=== PATIENT | male | born 1950 | race Caucasian/White ===

== ENCOUNTER 2021-03-17 09:09 | Inpatient (IN) | payer OTHER ==
[~2021-03-17] VITALS: Ht 167.6 cm; Wt 100.0 kg
[2021-03-17 10:18] LABS: BASOPHILS # (AUTO) 0.1 X10'3 (0-0.2); BASOPHILS % (AUTO) 0.7 % (0-1); EOSINOPHILS # (AUTO) 0.5 X10'3 (0-0.9); EOSINOPHILS % (AUTO) 4.6 % (0-6); HEMATOCRIT 37.8 % (42.0-52.0); HEMOGLOBIN 12.5 g/dl (14.0-17.9); LYMPHOCYTES # (AUTO) 2.4 X10'3 (1.1-4.8); LYMPHOCYTES % (AUTO) 21.5 % (21-51); MEAN CORPUSCULAR HGB CONC 33.1 g/dL (33.0-36.5); MEAN CORPUSCULAR VOLUME 90.7 FL (78-98); MEAN PLATELET VOLUME 7.7 FL (7.4-10.4); MONOCYTES # (AUTO) 0.9 X10'3 (0-0.9); MONOCYTES % (AUTO) 8.4 % (2-12); NEUTROPHILS # (AUTO) 7.2 X10'3 (1.8-7.7); NEUTROPHILS % (AUTO) 64.8 % (42-75); PLATELET COUNT 397 X10'3 (140-440); RED BLOOD COUNT 4.17 X10'6 (4.70-6.10); RED CELL DISTRIBUTION WIDTH 13.7 % (11.5-14.5); WHITE BLOOD COUNT 11.1 X10'3 (4.5-11.0)
--- NOTE | 2021-03-17 10:21 | NUR ---
TURNAROUND PLANNER IN ROOM FOR PROCEDURE.
[2021-03-17 10:30] LABS: ALANINE AMINOTRANSFERASE 36 U/L (12-78); ALBUMIN 3.4 G/DL (3.4-5.0); ALBUMIN/GLOBULIN RATIO 0.7 (1.1-1.5); ALKALINE PHOSPHATASE 88 IU/L (46-116); ANION GAP 12 (8-16); ASPARTATE AMINO TRANSFERASE 22 U/L (10-37); BILIRUBIN,TOTAL 0.3 MG/DL (0.1-1.0); BLOOD UREA NITROGEN 21 MG/DL (7-18); BUN/CREATININE RATIO 11.9 (5.4-32.0); CHLORIDE 101 MMOL/L (99-107); CREATININE 1.77 MG/DL (0.60-1.10); GLUCOSE 153 MG/DL (70-104); POTASSIUM 5.3 MMOL/L (3.5-5.1); SODIUM 137 MMOL/L (135-145); TOTAL CARBON DIOXIDE 23.6 MMOL/L (24-32); TOTAL PROTEIN 8.2 G/DL (6.4-8.2); eGFR 38 ML/MIN
[2021-03-17 11:40] LABS: C-REACTIVE PROTEIN 2.28 MG/DL (0.0-0.5)
[2021-03-17] MEDS ORDERED: CefTRIAXone/D5W-Rocephin 1gm 50 ML IV ONE (11:45)
[2021-03-17] MEDS ORDERED: acetaminophen 325mg tablet PO PRN ×2 (12:00)
[2021-03-17] MEDS ORDERED: magnesium 2GM in 50ml NS 50 ML IV PRN (12:00)
[2021-03-17] MEDS ORDERED: magnesium 4gm in 100ml NS 100 ML IV PRN (12:00)
[2021-03-17] MEDS ORDERED: dextrose ORAL solution 15 GM/59 ML bottle PO PRN (12:00)
[2021-03-17] MEDS ORDERED: magnesium hydroxide 30ml (MOM) UD suspension PO PRN (12:00)
[2021-03-17] MEDS ORDERED: HYDROcodone/acetaminophen 5mg/325mg tablet PO PRN (12:00)
[2021-03-17] MEDS ORDERED: HYDROcodone/acetaminophen 10/325mg tab PO PRN (12:00)
[2021-03-17] MEDS ORDERED: ondansetron/PF 4mg/2ml inj IV PRN (12:00)
[2021-03-17] MEDS ORDERED: mag hydrox/Alum hydrox/simeth 30ml oral suspension PO PRN (12:00)
[2021-03-17] MEDS: sodium bicarbonate (8.4%) inj. 100 MEQ in sodium chloride 0.45% 1,000 ML IV SCH (12:00)
[2021-03-17] MEDS ORDERED: glucagon, human recombinant 1mg kit SUBCUT PRN (12:00)
[2021-03-17] MEDS ORDERED: magnesium Cl slow-release 64mg tablet PO PRN (12:00)
[2021-03-17] MEDS ORDERED: MESSAGE TO PHARMACY PO ONE (12:00)
[2021-03-17] MEDS ORDERED: potassium Cl 20 mEq SR tablet PO PRN ×2 (12:00)
[2021-03-17] MEDS ORDERED: dextrose 50%-water 50ml dispensing syringe IV PRN ×2 (12:00)
[2021-03-17] MEDS ORDERED: potassium Cl 40MEQ/1/2NS 520ml 520 ML IV PRN ×2 (12:00)
--- NOTE | 2021-03-17 12:40 | NUR ---
PT'S REPORTS THAT THE NURSING STAFF WILL NEED TO CALL HER FOR ANYTHING BECAUSE THE PT HAS DEMENTIA AND WILL NOT BE ABLE TO GIVE INFORMATION. PT'S IS LEAVING NOW.
[2021-03-17 12:50] LABS: CLARITY,URINE CLEAR (Clear); COLOR,URINE YELLOW (Yellow); GLUCOSE, URINE NEGATIVE (Neg); KETONES,URINE NEGATIVE (Neg); LEUKOCYTE ESTERASE ,URINE NEGATIVE (Neg); NITRITES, URINE NEGATIVE (Neg); OCCULT BLOOD,URINE NEGATIVE (Neg); PROTEIN,URINE NEGATIVE (Neg); UROBILINOGEN,URINE 0.2 E.U/dL (0.2-1.0)
[2021-03-17 12:56] LABS: UA COLLECTION TYPE VOIDED
[2021-03-17] MEDS: vancomycin/NS 1 GM ADD-VANTAGE 250 ML IV SCH ×2 (13:00→14:13)
[2021-03-17 13:02] LABS: HEMOGLOBIN A1C 8.7 % (4.5-6.2)
[2021-03-17] MEDS ORDERED: AMLO10TA13 PO (13:35)
[2021-03-17] MEDS ORDERED: LANTUS SQ (13:35)
[2021-03-17] MEDS ORDERED: OLAN7.5T9 PO (13:35)
[2021-03-17] MEDS ORDERED: VALS160T30 PO (13:35)
[2021-03-17] MEDS ORDERED: CLOP75TA34 PO (13:35)
[2021-03-17] MEDS ORDERED: DOCU-267 PO (13:35)
[2021-03-17] MEDS ORDERED: ASPI-612 PO (13:35)
[2021-03-17] MEDS ORDERED: INSU100I8 SQ (14:11)
[2021-03-17] MEDS ORDERED: MULT-384 PO (14:11)
[2021-03-17] MEDS ORDERED: METF-950 PO (14:11)
[2021-03-17] MEDS ORDERED: heparin 10,000 units/1 ML INJ IV ONE (17:05)
[2021-03-17] MEDS ORDERED: heparin 10,000 units/1 ML INJ IV PRN (17:05)
[2021-03-17 18:00] VITALS: BP 149/66
[2021-03-17] MEDS: insulin Lispro (HumaLOG) vial - multi-dose SQ SCH (19:23)
[2021-03-17] MEDS: pantoprazole 40mg Tablet.DR PO SCH (19:26)
[2021-03-17] MEDS: K and/or MAG REPLACEMENT MC SCH (19:38)
[2021-03-17 20:44] LABS: PARTIAL THROMBOPLASTIN TIME 25 SECONDS (22-32)
[2021-03-17] MEDS ORDERED: temazepam 15mg capsule PO PRN (21:00)
[2021-03-17] MEDS: insulin glargine (Lantus) pen - multi-dose SQ SCH (21:30)
[2021-03-17 22:00] VITALS: BP 161/86
[2021-03-17] MEDS: heparin 25,000 UNIT/250ml bag 250 ML IV SCH (22:16)
[2021-03-18] MEDS: sodium bicarbonate (8.4%) inj. 100 MEQ in sodium chloride 0.45% 1,000 ML IV SCH ×2 (00:03→13:00)
[2021-03-18 06:00] VITALS: BP 155/91
[2021-03-18 06:07] LABS: BASOPHILS # (AUTO) 0.1 X10'3 (0-0.2); BASOPHILS % (AUTO) 0.6 % (0-1); EOSINOPHILS # (AUTO) 0.4 X10'3 (0-0.9); EOSINOPHILS % (AUTO) 3.8 % (0-6); HEMOGLOBIN 11.8 g/dl (14.0-17.9); LYMPHOCYTES % (AUTO) 27.2 % (21-51); MEAN CORPUSCULAR HEMOGLOBIN 30.1 PG (27.0-31.0); MEAN CORPUSCULAR HGB CONC 32.8 g/dL (33.0-36.5); MEAN CORPUSCULAR VOLUME 91.7 FL (78-98); MEAN PLATELET VOLUME 7.8 FL (7.4-10.4); MONOCYTES # (AUTO) 0.9 X10'3 (0-0.9); MONOCYTES % (AUTO) 8.3 % (2-12); NEUTROPHILS # (AUTO) 6.6 X10'3 (1.8-7.7); NEUTROPHILS % (AUTO) 60.1 % (42-75); PLATELET COUNT 404 X10'3 (140-440); RED BLOOD COUNT 3.92 X10'6 (4.70-6.10); RED CELL DISTRIBUTION WIDTH 13.7 % (11.5-14.5)
[2021-03-18 06:08] LABS: PARTIAL THROMBOPLASTIN TIME 28 SECONDS (22-32)
[2021-03-18 06:14] LABS: ALANINE AMINOTRANSFERASE 26 U/L (12-78); ALBUMIN/GLOBULIN RATIO 0.7 (1.1-1.5); ALKALINE PHOSPHATASE 73 IU/L (46-116); ANION GAP 11 (8-16); ASPARTATE AMINO TRANSFERASE 17 U/L (10-37); BILIRUBIN,TOTAL 0.4 MG/DL (0.1-1.0); BLOOD UREA NITROGEN 17 MG/DL (7-18); BUN/CREATININE RATIO 10.1 (5.4-32.0); CALCIUM 8.5 MG/DL (8.5-10.1); CHLORIDE 105 MMOL/L (99-107); CHOL/HDL RATIO 5.5 (0.00-4.99); CHOLESTEROL 199 MG/DL (0-200); CREATININE 1.68 MG/DL (0.60-1.10); GLUCOSE 137 MG/DL (70-104); HDL CHOLESTEROL 36 MG/DL (35-60); LDL CHOLESTEROL 136 MG/DL (50-100); MAGNESIUM 1.9 MG/DL (1.5-2.4); POTASSIUM 4.1 MMOL/L (3.5-5.1); SODIUM 139 MMOL/L (135-145); TOTAL CARBON DIOXIDE 22.7 MMOL/L (24-32); TOTAL PROTEIN 7.6 G/DL (6.4-8.2); TRIGLYCERIDES 180 MG/DL (20-135); eGFR 40 ML/MIN
[2021-03-18] MEDS: pantoprazole 40mg Tablet.DR PO SCH (07:29)
--- NOTE | 2021-03-18 07:34 | NUR ---
PAGER ID: [phone] MESSAGE: Janey Adamson 1809: patients heparin gtt was not started correctly last night. PTT went from 25 to 28 this AM. would you like me to follow the protocol or restart from initial rate it should have been at? thanks, екатерина [phone]
[2021-03-18] MEDS: heparin 25,000 UNIT/250ml bag 250 ML IV SCH (07:59)
[2021-03-18] MEDS: K and/or MAG REPLACEMENT MC SCH ×2 (08:00→19:05)
[2021-03-18] MEDS ORDERED: enoxaparin 40mg/0.4ml syringe SUBCUT SCH (08:00)
--- NOTE | 2021-03-18 08:04 | NUR ---
Spoke with MD regarding heparin gtt. He said to give the bolus per protocol and adjust the infusion rate to the 1200 units/hr initial rate. All corrections have been made and co-signed.
--- NOTE | 2021-03-18 08:20 | NUR ---
Acting as resource RN assumed care so Haleigh ROTH could go on a break.
[2021-03-18] MEDS: insulin Lispro (HumaLOG) vial - multi-dose SQ SCH ×3 (08:36→18:59)
[2021-03-18] MEDS: CefTRIAXone/D5W-Rocephin 1gm 50 ML IV SCH (08:38)
--- NOTE | 2021-03-18 09:00 | NUR ---
PAGER ID: [phone] MESSAGE: Janey Adamson [phone]: patient cannot go to MRI with heparin gtt. are you okay with it being paused while he goes? thanks, екатерина [phone]
--- NOTE | 2021-03-18 09:18 | NUR ---
DM Consult "pt confused": A1C 8.7 and hx dementia per EMR. Pt not appropriate for DM ed at this time. Addendum: 03/18/21 at [address] Amended: Links added.
--- NOTE | 2021-03-18 09:26 | NUR ---
confirmed with MD patient is ok to take plavix and aspirin while on Heparin drip.
[2021-03-18] MEDS: OLANZapine 2.5MG tablet PO SCH (09:44)
[2021-03-18] MEDS: atorvastatin 20mg tablet PO SCH (09:45)
[2021-03-18] MEDS: aspirin 81mg tablet.DR PO SCH (09:45)
[2021-03-18] MEDS: clopidogrel 75mg tablet PO SCH (09:50)
[2021-03-18] MEDS: amLODIPine 5mg tablet PO SCH (09:50)
[2021-03-18] MEDS: losartan 50mg tablet PO SCH (09:51)
[2021-03-18 10:04] VITALS: BP 139/76
--- NOTE | 2021-03-18 10:07 | NUR ---
Acting as resource RN i assumed patient care to send Sasha RN on a break.
[2021-03-18 10:30] VITALS: BP 139/76
[2021-03-18] MEDS: acetylcysteine 200 MG/ml 4ml vial PO SCH ×2 (10:37→19:01)
--- NOTE | 2021-03-18 12:05 | NUR ---
Acting as resource RN assuming patient care to send Sasha RN on a break.
[2021-03-18] MEDS: vancomycin/NS 1 GM ADD-VANTAGE 250 ML IV SCH (12:59)
--- NOTE | 2021-03-18 14:35 | NUR ---
PAGER ID: [phone] MESSAGE: Janey Dick [phone]: patient intermittently agitated and pulling at lines. would you like a PRN ordered for him? thanks, екатерина [phone]
--- NOTE | 2021-03-18 14:53 | NUR ---
PAGER ID: [phone] MESSAGE: Janey Dick [phone]: cable splicing technician called asking if you still wanted the MRI completed? thanks, екатерина [phone]
[2021-03-18] MEDS: LORazepam 2 mg/ml vial IV PRN (15:55)
--- NOTE | 2021-03-18 16:46 | NUR ---
Acting as resource RN i have assumed patient care and sent Sasha ROTH on a break
[2021-03-18 18:00] VITALS: BP 151/80
--- NOTE | 2021-03-18 18:02 | NUR ---
Patient in room ORTHO 4010. I have received report from GONZALEZ Salguero and had the opportunity to ask questions and assume patient care. Addendum: 03/18/21 at 1810 by Cathleen Oakley STUDENT SEEMA Note time wrong, meant to be at 0600
--- NOTE | 2021-03-18 18:04 | NUR ---
Student documentation: I have reviewed and agree with all interventions, assessments performed and documented by SN Cathleen. Student Medication Administration: For this medication-pass time frame, all medication were reviewed, dispensed, administered and documented per hospital policy by SN Cathleen.
--- NOTE | 2021-03-18 18:22 | NUR ---
Problems reprioritized. Patient report given, questions answered & plan of care reviewed with GONZALEZ Salguero.
[2021-03-18] MEDS: insulin glargine (Lantus) pen - multi-dose SQ SCH (21:43)
[2021-03-18 22:00] VITALS: BP 146/70
[2021-03-19] VITALS (11 sets, daily range): BP systolic 117–157; BP diastolic 70–96
[2021-03-19] MEDS: sodium bicarbonate (8.4%) inj. 100 MEQ in sodium chloride 0.45% 1,000 ML IV SCH (00:36)
[2021-03-19] MEDS: heparin 25,000 UNIT/250ml bag 250 ML IV SCH ×2 (02:29→17:38)
[2021-03-19 03:48] LABS: BASOPHILS # (AUTO) 0.1 X10'3 (0-0.2); BASOPHILS % (AUTO) 0.9 % (0-1); EOSINOPHILS # (AUTO) 0.7 X10'3 (0-0.9); EOSINOPHILS % (AUTO) 6.1 % (0-6); HEMATOCRIT 36.4 % (42.0-52.0); HEMOGLOBIN 11.9 g/dl (14.0-17.9); LYMPHOCYTES # (AUTO) 3.6 X10'3 (1.1-4.8); MEAN CORPUSCULAR HEMOGLOBIN 29.8 PG (27.0-31.0); MEAN CORPUSCULAR HGB CONC 32.6 g/dL (33.0-36.5); MEAN CORPUSCULAR VOLUME 91.4 FL (78-98); MEAN PLATELET VOLUME 7.8 FL (7.4-10.4); MONOCYTES # (AUTO) 1.1 X10'3 (0-0.9); MONOCYTES % (AUTO) 9.7 % (2-12); NEUTROPHILS % (AUTO) 52.3 % (42-75); PLATELET COUNT 387 X10'3 (140-440); RED BLOOD COUNT 3.99 X10'6 (4.70-6.10); RED CELL DISTRIBUTION WIDTH 13.9 % (11.5-14.5); WHITE BLOOD COUNT 11.5 X10'3 (4.5-11.0)
[2021-03-19 03:57] LABS: ALANINE AMINOTRANSFERASE 37 U/L (12-78); ALBUMIN 3.2 G/DL (3.4-5.0); ALBUMIN/GLOBULIN RATIO 0.7 (1.1-1.5); ALKALINE PHOSPHATASE 74 IU/L (46-116); ANION GAP 10 (8-16); ASPARTATE AMINO TRANSFERASE 30 U/L (10-37); BILIRUBIN,TOTAL 0.4 MG/DL (0.1-1.0); BLOOD UREA NITROGEN 18 MG/DL (7-18); BUN/CREATININE RATIO 10.5 (5.4-32.0); CALCIUM 8.2 MG/DL (8.5-10.1); CHLORIDE 105 MMOL/L (99-107); CREATININE 1.71 MG/DL (0.60-1.10); GLUCOSE 122 MG/DL (70-104); MAGNESIUM 2.1 MG/DL (1.5-2.4); POTASSIUM 3.8 MMOL/L (3.5-5.1); SODIUM 142 MMOL/L (135-145); TOTAL CARBON DIOXIDE 27.2 MMOL/L (24-32); TOTAL PROTEIN 7.8 G/DL (6.4-8.2); eGFR 40 ML/MIN
[2021-03-19 04:05] LABS: PARTIAL THROMBOPLASTIN TIME 72 SECONDS (22-32)
--- NOTE | 2021-03-19 06:53 | NUR ---
Patient in room ORTHO 4010. I have received report from Indra ROTH and Noemy RN and had the opportunity to ask questions and assume patient care.
[2021-03-19] MEDS: K and/or MAG REPLACEMENT MC SCH ×2 (08:00→19:41)
[2021-03-19] MEDS: clopidogrel 75mg tablet PO SCH (08:00)
[2021-03-19] MEDS: aspirin 81mg tablet.DR PO SCH (08:00)
[2021-03-19] MEDS: insulin Lispro (HumaLOG) vial - multi-dose SQ SCH ×2 (09:00→13:59)
[2021-03-19] MEDS: pantoprazole 40mg Tablet.DR PO SCH (09:02)
[2021-03-19] MEDS: OLANZapine 2.5MG tablet PO SCH (09:02)
[2021-03-19] MEDS: atorvastatin 20mg tablet PO SCH (09:02)
[2021-03-19] MEDS: amLODIPine 5mg tablet PO SCH (09:03)
[2021-03-19] MEDS: losartan 50mg tablet PO SCH (09:03)
[2021-03-19] MEDS: CefTRIAXone/D5W-Rocephin 1gm 50 ML IV SCH (09:04)
[2021-03-19] MEDS: acetylcysteine 200 MG/ml 4ml vial PO SCH ×2 (09:05→19:49)
[2021-03-19 10:21] LABS: PARTIAL THROMBOPLASTIN TIME 56 SECONDS (22-32)
[2021-03-19] MEDS: LORazepam 2 mg/ml vial IV PRN (12:26)
[2021-03-19] MEDS: vancomycin/NS 1 GM ADD-VANTAGE 250 ML IV SCH ×2 (14:00→17:04)
[2021-03-19] MEDS ORDERED: LIDOcaine 1%/PF 5ML 10 MG/ML VIAL ONE (14:36)
[2021-03-19] MEDS ORDERED: iohexol 300 MG/1 ML 50ml polymer ONE (14:36)
[2021-03-19] MEDS ORDERED: iohexol 300mg/ml 100ml inj. ONE (14:36)
--- NOTE | 2021-03-19 14:47 | NUR ---
Patient down to angio in bed. Heparin GTT infusing.
[2021-03-19] MEDS ORDERED: diphenhydrAMINE 50 mg/ml inj ONE (14:55)
[2021-03-19] MEDS ORDERED: fentaNYL/PF 50MCG/1 ML 2ML syringe ONE (14:55)
[2021-03-19] MEDS ORDERED: midazolam 1 mg/ML 2ml injection ONE (14:55)
[2021-03-19] MEDS ORDERED: heparin 1,000 UNITS/NS 500ml 500 ML ONE (15:04)
--- NOTE | 2021-03-19 16:17 | NUR ---
PAGER ID: [phone] MESSAGE: [phone], patient is still in angiogram however his heparin drip reached its stop date and was discontinued. Do you want to continue the heparin drip? Thanks, Silvia neville [phone]
--- NOTE | 2021-03-19 16:31 | NUR ---
Heparin drip reached its stop date and fell of the JAN. Called Dr. Palacio asking if she wanted to re-order. Dr. Young stopped the heparin drip during his angiogram and said it was not needed because there is no acute issue. Dr. Palacio notified, she is going to come round on the patient and make a decision about whether or not he needs to be on the heparin drip. Returned from angio VSS. Has to lay supine until 1800. Dressing is clean dry and intact, minimal drainage noted. Addendum: 03/19/21 at 1759 by Silvia Garces RN Heparin drip restarted.
[2021-03-19] MEDS ORDERED: heparin 10,000 units/1 ML INJ IV PRN (17:15)
[2021-03-19] MEDS ORDERED: heparin 10,000 units/1 ML INJ IV ONE (17:15)
--- NOTE | 2021-03-19 18:00 | NUR ---
Patients tabs alarm was going off, came into room and patient had pulled out IV to right arm. Blood was all over the room. Cleaned patient up, applied gauze and tape. Student RN attempted to restart IV to give the rest of his IV antibiotics and was unsuccessful. Bed is low and locked, tabs and bed alarm are on and audible.
[2021-03-19 18:09] LABS: PARTIAL THROMBOPLASTIN TIME 27 SECONDS (22-32)
--- NOTE | 2021-03-19 18:39 | NUR ---
Problems reprioritized. Patient report given, questions answered & plan of care reviewed with Indra ROTH. Addendum: 03/19/21 at 1846 by Silvia Garces RN report also discussed with Noemy ROTH
[2021-03-19] MEDS: lactobacillus rhamnosus 10,000 MMU CELLS/CAPSULE PO SCH (19:48)
[2021-03-19] MEDS: insulin glargine (Lantus) pen - multi-dose SQ SCH (21:42)
[2021-03-20 00:41] LABS: PARTIAL THROMBOPLASTIN TIME 71 SECONDS (22-32)
[2021-03-20] MEDS: heparin 25,000 UNIT/250ml bag 250 ML IV SCH ×2 (00:57→07:47)
[2021-03-20 06:36] LABS: BASOPHILS # (AUTO) 0.1 X10'3 (0-0.2); BASOPHILS % (AUTO) 0.7 % (0-1); EOSINOPHILS # (AUTO) 0.4 X10'3 (0-0.9); HEMATOCRIT 35.9 % (42.0-52.0); HEMOGLOBIN 11.7 g/dl (14.0-17.9); LYMPHOCYTES # (AUTO) 2.7 X10'3 (1.1-4.8); LYMPHOCYTES % (AUTO) 23.6 % (21-51); MEAN CORPUSCULAR HEMOGLOBIN 29.7 PG (27.0-31.0); MEAN CORPUSCULAR HGB CONC 32.5 g/dL (33.0-36.5); MEAN CORPUSCULAR VOLUME 91.6 FL (78-98); MEAN PLATELET VOLUME 8.3 FL (7.4-10.4); MONOCYTES # (AUTO) 1.1 X10'3 (0-0.9); MONOCYTES % (AUTO) 9.3 % (2-12); NEUTROPHILS # (AUTO) 7.4 X10'3 (1.8-7.7); NEUTROPHILS % (AUTO) 63.4 % (42-75); PLATELET COUNT 414 X10'3 (140-440); RED BLOOD COUNT 3.92 X10'6 (4.70-6.10); RED CELL DISTRIBUTION WIDTH 13.8 % (11.5-14.5); WHITE BLOOD COUNT 11.6 X10'3 (4.5-11.0)
[2021-03-20 06:59] LABS: ALANINE AMINOTRANSFERASE 41 U/L (12-78); ALBUMIN 3.3 G/DL (3.4-5.0); ALBUMIN/GLOBULIN RATIO 0.7 (1.1-1.5); ALKALINE PHOSPHATASE 71 IU/L (46-116); ANION GAP 12 (8-16); ASPARTATE AMINO TRANSFERASE 27 U/L (10-37); BILIRUBIN,TOTAL 0.4 MG/DL (0.1-1.0); BLOOD UREA NITROGEN 16 MG/DL (7-18); BUN/CREATININE RATIO 8.5 (5.4-32.0); CALCIUM 8.7 MG/DL (8.5-10.1); CHLORIDE 108 MMOL/L (99-107); CREATININE 1.88 MG/DL (0.60-1.10); GLUCOSE 144 MG/DL (70-104); MAGNESIUM 2.1 MG/DL (1.5-2.4); POTASSIUM 3.9 MMOL/L (3.5-5.1); SODIUM 145 MMOL/L (135-145); TOTAL CARBON DIOXIDE 25.4 MMOL/L (24-32); TOTAL PROTEIN 7.9 G/DL (6.4-8.2); eGFR 36 ML/MIN
[2021-03-20 07:00] VITALS: BP 132/70
[2021-03-20] MEDS: pantoprazole 40mg Tablet.DR PO SCH (07:25)
[2021-03-20] MEDS: CefTRIAXone/D5W-Rocephin 1gm 50 ML IV SCH (07:25)
[2021-03-20] MEDS: amLODIPine 5mg tablet PO SCH (07:27)
[2021-03-20] MEDS: atorvastatin 20mg tablet PO SCH (07:29)
[2021-03-20] MEDS: OLANZapine 2.5MG tablet PO SCH (07:29)
[2021-03-20] MEDS: clopidogrel 75mg tablet PO SCH (07:30)
[2021-03-20] MEDS: losartan 50mg tablet PO SCH (07:30)
[2021-03-20] MEDS: lactobacillus rhamnosus 10,000 MMU CELLS/CAPSULE PO SCH ×2 (07:31→19:20)
[2021-03-20] MEDS: aspirin 81mg tablet.DR PO SCH (07:31)
[2021-03-20] MEDS: acetylcysteine 200 MG/ml 4ml vial PO SCH ×2 (07:32→19:20)
[2021-03-20] MEDS: K and/or MAG REPLACEMENT MC SCH ×2 (08:00→19:19)
[2021-03-20] MEDS: insulin Lispro (HumaLOG) vial - multi-dose SQ SCH ×3 (09:11→19:13)
[2021-03-20 11:00] VITALS: BP 142/77
--- NOTE | 2021-03-20 11:38 | NUR ---
Initial: Pt admit DX PVD w/ R SFA occlusion, DM, dementia, and gangrenous R great to per EMR. R great toe unstageable wound w/ eschar covering and no openings/drainage per WOC note. Pt NPO yesterday w/ 75-100% most meals 03/17-03/18 outside one refusal good given age and dementia hx. Dietary notified to send chopped all foods given hx L hemiplegia, age, and dementia. PO meals pending today. No BM yet this admit; would benefit from routine bowel care. Will continue to monitor for PO hx and additional wound healing needs. Rec: 1. continue carb controlled/heart healthy diet per MD; chop all for ease of PO w/ hx L hemiplegia and dementia 2. monitor for ONS needs pending further PO hx and WOC assessments 3. routine bowel care 4. scaled wt this admit Addendum: 03/20/21 at [address] Amended: Links added.
--- NOTE | 2021-03-20 12:22 | NUR ---
Patient in room ORTHO 4010. I have received report from Ana Benito RN and had the opportunity to ask questions and assume patient care.
[2021-03-20] MEDS ORDERED: nitroGLYCERIN 0.4mg SUBLingual tab SL PRN (16:30)
[2021-03-20] MEDS ORDERED: aminophylline 250mg/10ml inj. IV PRN (16:30)
[2021-03-20] MEDS ORDERED: metoprolol tartrate 1mg/ml inj IV PRN (16:30)
[2021-03-20] MEDS ORDERED: regadenoson 0.4mg/5ml syringe IV PRN (16:30)
[2021-03-20] MEDS: vancomycin/NS 1 GM ADD-VANTAGE 250 ML IV SCH (16:35)
[2021-03-20 18:00] VITALS: BP 151/79
--- NOTE | 2021-03-20 18:00 | NUR ---
Patient in room ORTHO 4010. I have received report from Ana ROTH and had the opportunity to ask questions and assume patient care.
--- NOTE | 2021-03-20 18:45 | NUR ---
patient impulsive at times, present, all cares given seen by Dr jones and Dr schmidt . heparin kylie HOLMAN. Patient for possible virgie in am. NPO after midnight no caffeine. Report given to Jonnie
[2021-03-20] MEDS: insulin glargine (Lantus) pen - multi-dose SQ SCH (21:00)
[2021-03-20] MEDS: dextrose ORAL solution 15 GM/59 ML bottle PO PRN (21:57)
[2021-03-20 22:00] VITALS: BP 124/85
--- NOTE | 2021-03-20 22:47 | NUR ---
pt glucose rechecked, it is currently 100 from the 50's. insulin held, pt also npo after midnight
--- NOTE | 2021-03-20 22:56 | NUR ---
PAGER ID: [phone] MESSAGE: Pt: Agueda Rodríguez May I have an order for a smoking patch for the patient? Kevin ROTH [phone] called back and said pt cannot have nicotine patch
[2021-03-21] VITALS (10 sets, daily range): BP systolic 89–147; BP diastolic 49–85
--- NOTE | 2021-03-21 04:15 | NUR ---
Sent page to Dr. Navarro about patient falling on his way to the bathroom, no injury noted.
[2021-03-21] MEDS: LORazepam 2 mg/ml vial IV PRN (04:17)
--- NOTE | 2021-03-21 04:32 | NUR ---
pt was being assisted to the bathroom by rn. pt started urinating as rn was assisting him to the bathroom and pt slipped and rn assisted the patient to the ground. pt fell on his butt, no skin tears or any abrasions have occurred. charge account identification clerk was notified, was notified and pt's was called as well. vitals were taken pt did not state he had any pain. vitals were resp: 19, pulse was 93, tempt 98.1, and bp was 120/80.
--- NOTE | 2021-03-21 06:09 | NUR ---
Problems reprioritized. Patient report given, questions answered & plan of care reviewed with awilda fish.
[2021-03-21 07:19] LABS: BASOPHILS # (AUTO) 0.1 X10'3 (0-0.2); BASOPHILS % (AUTO) 0.9 % (0-1); EOSINOPHILS # (AUTO) 0.3 X10'3 (0-0.9); EOSINOPHILS % (AUTO) 3.3 % (0-6); HEMATOCRIT 32.3 % (42.0-52.0); LYMPHOCYTES # (AUTO) 2.1 X10'3 (1.1-4.8); LYMPHOCYTES % (AUTO) 22.4 % (21-51); MEAN CORPUSCULAR HEMOGLOBIN 30.6 PG (27.0-31.0); MEAN PLATELET VOLUME 8.1 FL (7.4-10.4); MONOCYTES # (AUTO) 0.8 X10'3 (0-0.9); MONOCYTES % (AUTO) 8.2 % (2-12); NEUTROPHILS # (AUTO) 6.2 X10'3 (1.8-7.7); NEUTROPHILS % (AUTO) 65.2 % (42-75); PLATELET COUNT 367 X10'3 (140-440); RED BLOOD COUNT 3.59 X10'6 (4.70-6.10); RED CELL DISTRIBUTION WIDTH 13.5 % (11.5-14.5); WHITE BLOOD COUNT 9.5 X10'3 (4.5-11.0)
[2021-03-21 07:45] LABS: ALANINE AMINOTRANSFERASE 34 U/L (12-78); ALBUMIN/GLOBULIN RATIO 0.7 (1.1-1.5); ALKALINE PHOSPHATASE 63 IU/L (46-116); ANION GAP 11 (8-16); ASPARTATE AMINO TRANSFERASE 26 U/L (10-37); BILIRUBIN,TOTAL 0.4 MG/DL (0.1-1.0); BLOOD UREA NITROGEN 15 MG/DL (7-18); BUN/CREATININE RATIO 8.7 (5.4-32.0); CALCIUM 8.3 MG/DL (8.5-10.1); CHLORIDE 105 MMOL/L (99-107); CREATININE 1.73 MG/DL (0.60-1.10); GLUCOSE 132 MG/DL (70-104); POTASSIUM 3.7 MMOL/L (3.5-5.1); SODIUM 140 MMOL/L (135-145); TOTAL CARBON DIOXIDE 24.2 MMOL/L (24-32); TOTAL PROTEIN 7.3 G/DL (6.4-8.2); eGFR 39 ML/MIN
[2021-03-21] MEDS: K and/or MAG REPLACEMENT MC SCH ×2 (08:00→20:00)
[2021-03-21] MEDS: clopidogrel 75mg tablet PO SCH (08:14)
[2021-03-21] MEDS: pantoprazole 40mg Tablet.DR PO SCH (08:14)
[2021-03-21] MEDS: lactobacillus rhamnosus 10,000 MMU CELLS/CAPSULE PO SCH ×2 (08:14→19:32)
[2021-03-21] MEDS: atorvastatin 20mg tablet PO SCH (08:14)
[2021-03-21] MEDS: aspirin 81mg tablet.DR PO SCH (08:14)
[2021-03-21] MEDS: OLANZapine 2.5MG tablet PO SCH (08:14)
[2021-03-21] MEDS: CefTRIAXone/D5W-Rocephin 1gm 50 ML IV SCH (08:18)
[2021-03-21] MEDS: acetylcysteine 200 MG/ml 4ml vial PO SCH (08:18)
[2021-03-21] MEDS: losartan 50mg tablet PO SCH (08:59)
[2021-03-21] MEDS: amLODIPine 5mg tablet PO SCH (08:59)
[2021-03-21] MEDS: insulin Lispro (HumaLOG) vial - multi-dose SQ SCH ×2 (14:13→19:32)
[2021-03-21] MEDS: vancomycin/NS 1 GM ADD-VANTAGE 250 ML IV SCH (17:08)
--- NOTE | 2021-03-21 18:37 | NUR ---
Problems reprioritized. Patient report given, questions answered & plan of care reviewed with DEBBIE ROTH.
--- NOTE | 2021-03-21 20:12 | NUR ---
Patient in room ORTHO 4010. I have received report from CHEKO ROTH AT 1800 and had the opportunity to ask questions and assume patient care.
[2021-03-21] MEDS: insulin glargine (Lantus) pen - multi-dose SQ SCH ×2 (21:00→22:01)
[2021-03-21] MEDS: dextrose ORAL solution 15 GM/59 ML bottle PO PRN (21:20)
--- NOTE | 2021-03-21 21:41 | NUR ---
PATIENT TAKES 30UNITS LANTUS AT NIGHT WHEN HOME, ARE FINDING PATIENTS BLD SUGARS NOT WELL CONTROLLED AND PER L6 RC'D 28UNITS HUMALOG FOR COVERAGE AND BLD GLUCOSE LEVEL AT 2100 WAS 62. 15GM GLUCOSE SHOT GIVEN PO AND CALLED DR. JOSEPH REGARDING LANTUS DOSE WE ARE GIVING THE PATIENT COMPARED TO WHAT HE REC'S AT HOME. WILL INCREASE LANTUS TO 25UNITS AT NIGHT, PATIENT TO RESTART ON LEVEL 2 OF THE PROTOCOL AND MONITOR HIS SUGARS. PATIENT EATING A SANDWICH AT THIS TIME, WILL RECHECK BLD SUGAR AND ADMINISTER LANTUS NEW ORDER STATES.
--- NOTE | 2021-03-22 04:08 | NUR ---
PATIENT OOB AND NOT ABLE TO REDIRECT HIM TO SIT IN CHAIR AND USE HIS URINAL. VERY IMPULSIVE. PATIENT VOIDED FROM BEDSIDE ALL THE WAY INTO THE BATHROOM. HAD PT SIT ON TOILET AND GAVE HIM A PARTIAL BATH, GOWN CHANGE AND NON-SKID SOCKS, COMPLETE LINEN CHANGE ON BED AND AMBULATED PATIENT BACK TO BED. RAILS UP X 3, SITTER FOR PATIENT IN A BED ALSO ABLE TO WATCH HIM.
--- NOTE | 2021-03-22 05:37 | NUR ---
WOKE UP AND BEGAN TO GET OUT OF BED STATED "I GOTTA PEE!" GAVE PATIENT THE URINAL AND TURNED ON THE LIGHT FOR HIM. PATIENT VOIDED LARGE AMT YELLOW URINE AND LAY BACK DOWN.
[2021-03-22 06:00] VITALS: BP 112/80
--- NOTE | 2021-03-22 06:14 | NUR ---
Problems reprioritized. Patient report given, questions answered & plan of care reviewed with CHEKO ROTH.
--- NOTE | 2021-03-22 06:39 | NUR ---
Patient in room ORTHO 4010. I have received report from DEBBIE ROTH and had the opportunity to ask questions and assume patient care.
[2021-03-22 07:24] LABS: BASOPHILS # (AUTO) 0.1 X10'3 (0-0.2); BASOPHILS % (AUTO) 0.6 % (0-1); EOSINOPHILS # (AUTO) 0.4 X10'3 (0-0.9); EOSINOPHILS % (AUTO) 2.9 % (0-6); HEMATOCRIT 34.9 % (42.0-52.0); HEMOGLOBIN 11.6 g/dl (14.0-17.9); LYMPHOCYTES # (AUTO) 2.4 X10'3 (1.1-4.8); LYMPHOCYTES % (AUTO) 19.9 % (21-51); MEAN CORPUSCULAR HEMOGLOBIN 30.2 PG (27.0-31.0); MEAN CORPUSCULAR HGB CONC 33.3 g/dL (33.0-36.5); MEAN CORPUSCULAR VOLUME 90.7 FL (78-98); MEAN PLATELET VOLUME 8.2 FL (7.4-10.4); MONOCYTES # (AUTO) 1.1 X10'3 (0-0.9); MONOCYTES % (AUTO) 9.1 % (2-12); NEUTROPHILS # (AUTO) 8.3 X10'3 (1.8-7.7); NEUTROPHILS % (AUTO) 67.5 % (42-75); PLATELET COUNT 380 X10'3 (140-440); RED BLOOD COUNT 3.85 X10'6 (4.70-6.10); RED CELL DISTRIBUTION WIDTH 13.9 % (11.5-14.5); WHITE BLOOD COUNT 12.2 X10'3 (4.5-11.0)
[2021-03-22 07:41] LABS: ALANINE AMINOTRANSFERASE 57 U/L (12-78); ALBUMIN 3.3 G/DL (3.4-5.0); ALBUMIN/GLOBULIN RATIO 0.7 (1.1-1.5); ALKALINE PHOSPHATASE 80 IU/L (46-116); ANION GAP 12 (8-16); ASPARTATE AMINO TRANSFERASE 49 U/L (10-37); BILIRUBIN,TOTAL 0.3 MG/DL (0.1-1.0); BLOOD UREA NITROGEN 23 MG/DL (7-18); CALCIUM 8.9 MG/DL (8.5-10.1); CHLORIDE 105 MMOL/L (99-107); CREATININE 2.09 MG/DL (0.60-1.10); GLUCOSE 163 MG/DL (70-104); MAGNESIUM 2.1 MG/DL (1.5-2.4); POTASSIUM 4.1 MMOL/L (3.5-5.1); SODIUM 141 MMOL/L (135-145); TOTAL CARBON DIOXIDE 24.1 MMOL/L (24-32); TOTAL PROTEIN 8.1 G/DL (6.4-8.2); eGFR 31 ML/MIN
[2021-03-22] MEDS: K and/or MAG REPLACEMENT MC SCH ×2 (08:00→20:00)
[2021-03-22] MEDS: OLANZapine 2.5MG tablet PO SCH (08:12)
[2021-03-22] MEDS: pantoprazole 40mg Tablet.DR PO SCH (08:12)
[2021-03-22] MEDS: losartan 50mg tablet PO SCH (08:13)
[2021-03-22] MEDS: clopidogrel 75mg tablet PO SCH (08:13)
[2021-03-22] MEDS: amLODIPine 5mg tablet PO SCH (08:13)
[2021-03-22] MEDS: aspirin 81mg tablet.DR PO SCH (08:13)
[2021-03-22] MEDS: atorvastatin 20mg tablet PO SCH (08:13)
[2021-03-22] MEDS: lactobacillus rhamnosus 10,000 MMU CELLS/CAPSULE PO SCH ×2 (08:13→20:35)
[2021-03-22] MEDS: insulin Lispro (HumaLOG) vial - multi-dose SQ SCH ×3 (08:27→19:03)
[2021-03-22] MEDS ORDERED: VANCOMYCIN LEVEL IV ONE (16:30)
[2021-03-22] MEDS: vancomycin/NS 1 GM ADD-VANTAGE 250 ML IV SCH (17:20)
[2021-03-22] MEDS: normal saline 1000ml 1,000 ML IV SCH (17:20)
[2021-03-22 18:00] VITALS: BP 118/80
[2021-03-22] MEDS: insulin glargine (Lantus) pen - multi-dose SQ SCH (20:35)
--- NOTE | 2021-03-22 21:29 | NUR ---
Patient in room ORTHO 4010. I have received report from Marj ROTH at 1800 and had the opportunity to ask questions and assume patient care.
--- NOTE | 2021-03-23 06:00 | NUR ---
Patient in room ORTHO 4010. I have received report from Susannah ROTH and had the opportunity to ask questions and assume patient care.
--- NOTE | 2021-03-23 06:53 | NUR ---
Problems reprioritized. Patient report given, questions answered & plan of care reviewed with KEN ROTH.
[2021-03-23 07:16] LABS: MAGNESIUM 1.9 MG/DL (1.5-2.4)
[2021-03-23 07:59] LABS: BASOPHILS # (AUTO) 0.2 X10'3 (0-0.2); BASOPHILS % (AUTO) 1.4 % (0-1); EOSINOPHILS # (AUTO) 0.6 X10'3 (0-0.9); EOSINOPHILS % (AUTO) 4.5 % (0-6); HEMATOCRIT 34.5 % (42.0-52.0); HEMOGLOBIN 11.2 g/dl (14.0-17.9); LYMPHOCYTES # (AUTO) 2.6 X10'3 (1.1-4.8); LYMPHOCYTES % (AUTO) 21.4 % (21-51); MEAN CORPUSCULAR HEMOGLOBIN 29.6 PG (27.0-31.0); MEAN CORPUSCULAR HGB CONC 32.6 g/dL (33.0-36.5); MEAN CORPUSCULAR VOLUME 90.7 FL (78-98); MEAN PLATELET VOLUME 8.2 FL (7.4-10.4); MONOCYTES # (AUTO) 0.9 X10'3 (0-0.9); MONOCYTES % (AUTO) 7.6 % (2-12); NEUTROPHILS % (AUTO) 65.1 % (42-75); PLATELET COUNT 374 X10'3 (140-440); WHITE BLOOD COUNT 12.3 X10'3 (4.5-11.0)
[2021-03-23 08:00] VITALS: BP 133/72
[2021-03-23] MEDS: K and/or MAG REPLACEMENT MC SCH ×2 (08:00→20:00)
[2021-03-23 08:02] LABS: ALANINE AMINOTRANSFERASE 53 U/L (12-78); ALBUMIN 3.3 G/DL (3.4-5.0); ALBUMIN/GLOBULIN RATIO 0.7 (1.1-1.5); ALKALINE PHOSPHATASE 77 IU/L (46-116); ANION GAP 14 (8-16); ASPARTATE AMINO TRANSFERASE 40 U/L (10-37); BILIRUBIN,TOTAL 0.4 MG/DL (0.1-1.0); BLOOD UREA NITROGEN 22 MG/DL (7-18); BUN/CREATININE RATIO 12.6 (5.4-32.0); CALCIUM 8.7 MG/DL (8.5-10.1); CHLORIDE 105 MMOL/L (99-107); CREATININE 1.75 MG/DL (0.60-1.10); GLUCOSE 101 MG/DL (70-104); POTASSIUM 4.2 MMOL/L (3.5-5.1); SODIUM 142 MMOL/L (135-145); TOTAL PROTEIN 7.8 G/DL (6.4-8.2); eGFR 39 ML/MIN
[2021-03-23] MEDS: insulin Lispro (HumaLOG) vial - multi-dose SQ SCH ×3 (08:30→18:58)
[2021-03-23] MEDS: pantoprazole 40mg Tablet.DR PO SCH (08:34)
[2021-03-23] MEDS: clopidogrel 75mg tablet PO SCH (08:34)
[2021-03-23] MEDS: atorvastatin 20mg tablet PO SCH (08:34)
[2021-03-23] MEDS: OLANZapine 2.5MG tablet PO SCH (08:35)
[2021-03-23] MEDS: losartan 50mg tablet PO SCH (08:35)
[2021-03-23] MEDS: amLODIPine 5mg tablet PO SCH (08:35)
[2021-03-23] MEDS: aspirin 81mg tablet.DR PO SCH (08:35)
[2021-03-23] MEDS: lactobacillus rhamnosus 10,000 MMU CELLS/CAPSULE PO SCH ×2 (08:35→21:16)
[2021-03-23] MEDS: normal saline 1000ml 1,000 ML IV SCH ×3 (08:39→21:35)
[2021-03-23] MEDS ORDERED: VANCOmycin 1250MG/NS 250ml Bag 250 ML IV SCH (11:00)
[2021-03-23 18:00] VITALS: BP 140/59
--- NOTE | 2021-03-23 18:11 | NUR ---
Problems reprioritized. Patient report given, questions answered & plan of care reviewed with Susannah ROTH.
--- NOTE | 2021-03-23 19:50 | NUR ---
Patient in room ORTHO 4010. I have received report from Sima ROTH and had the opportunity to ask questions and assume patient care.
[2021-03-23] MEDS: insulin glargine (Lantus) pen - multi-dose SQ SCH (21:15)
[2021-03-23 22:00] VITALS: BP 145/57
[2021-03-24 06:00] VITALS: BP 128/50
--- NOTE | 2021-03-24 07:00 | NUR ---
Patient in room ORTHO 4010. I have received report from Piedad ROTH and had the opportunity to ask questions and assume patient care.
--- NOTE | 2021-03-24 07:00 | NUR ---
Patient in room ORTHO 4010B. I have received report from GONZALEZ LEWIS and had the opportunity to ask questions and assume patient care.
--- NOTE | 2021-03-24 07:03 | NUR ---
Problems reprioritized. Patient report given, questions answered & plan of care reviewed with KRYSTYNA ROTH.
--- NOTE | 2021-03-24 07:17 | NUR ---
Patient in room ORTHO 4010B. I have received report from GONZALEZ LEWIS and had the opportunity to ask questions and assume patient care. LUCAS JUNIOR RN WILL PROVIDE PRIMARY CARE. I WILL MONITOR ALL CARE AND ASSIST WHEN NEEDED.
[2021-03-24] MEDS: pantoprazole 40mg Tablet.DR PO SCH (07:50)
[2021-03-24] MEDS: losartan 50mg tablet PO SCH (07:53)
[2021-03-24] MEDS: lactobacillus rhamnosus 10,000 MMU CELLS/CAPSULE PO SCH ×2 (07:54→20:00)
[2021-03-24] MEDS: aspirin 81mg tablet.DR PO SCH (07:54)
[2021-03-24] MEDS: atorvastatin 20mg tablet PO SCH (07:55)
[2021-03-24] MEDS: amLODIPine 5mg tablet PO SCH (07:57)
[2021-03-24] MEDS: clopidogrel 75mg tablet PO SCH (07:58)
[2021-03-24] MEDS: K and/or MAG REPLACEMENT MC SCH ×2 (08:00→18:29)
[2021-03-24] MEDS: OLANZapine 2.5MG tablet PO SCH (08:01)
[2021-03-24] MEDS: insulin Lispro (HumaLOG) vial - multi-dose SQ SCH ×2 (08:30→18:36)
[2021-03-24 08:44] LABS: BASOPHILS # (AUTO) 0.1 X10'3 (0-0.2); BASOPHILS % (AUTO) 0.6 % (0-1); EOSINOPHILS # (AUTO) 0.4 X10'3 (0-0.9); EOSINOPHILS % (AUTO) 2.8 % (0-6); HEMATOCRIT 35.6 % (42.0-52.0); HEMOGLOBIN 11.8 g/dl (14.0-17.9); LYMPHOCYTES # (AUTO) 2.1 X10'3 (1.1-4.8); LYMPHOCYTES % (AUTO) 16.9 % (21-51); MEAN CORPUSCULAR HEMOGLOBIN 29.9 PG (27.0-31.0); MEAN CORPUSCULAR HGB CONC 33.1 g/dL (33.0-36.5); MEAN CORPUSCULAR VOLUME 90.4 FL (78-98); MEAN PLATELET VOLUME 8.1 FL (7.4-10.4); MONOCYTES % (AUTO) 8.2 % (2-12); NEUTROPHILS % (AUTO) 71.5 % (42-75); PLATELET COUNT 349 X10'3 (140-440); RED BLOOD COUNT 3.94 X10'6 (4.70-6.10); RED CELL DISTRIBUTION WIDTH 13.7 % (11.5-14.5); WHITE BLOOD COUNT 12.6 X10'3 (4.5-11.0)
[2021-03-24 08:58] LABS: ALANINE AMINOTRANSFERASE 45 U/L (12-78); ALBUMIN 3.4 G/DL (3.4-5.0); ALBUMIN/GLOBULIN RATIO 0.7 (1.1-1.5); ALKALINE PHOSPHATASE 78 IU/L (46-116); ANION GAP 11 (8-16); ASPARTATE AMINO TRANSFERASE 34 U/L (10-37); BILIRUBIN,TOTAL 0.5 MG/DL (0.1-1.0); BLOOD UREA NITROGEN 19 MG/DL (7-18); BUN/CREATININE RATIO 11.4 (5.4-32.0); CALCIUM 8.4 MG/DL (8.5-10.1); CHLORIDE 106 MMOL/L (99-107); CREATININE 1.66 MG/DL (0.60-1.10); GLUCOSE 208 MG/DL (70-104); MAGNESIUM 1.9 MG/DL (1.5-2.4); POTASSIUM 4.3 MMOL/L (3.5-5.1); SODIUM 139 MMOL/L (135-145); TOTAL CARBON DIOXIDE 22.3 MMOL/L (24-32); TOTAL PROTEIN 8.1 G/DL (6.4-8.2); eGFR 41 ML/MIN
[2021-03-24 10:00] VITALS: BP 112/63
--- NOTE | 2021-03-24 11:24 | NUR ---
Student Medication Administration:For this medication-pass time frame 5274-8655, all medications were reviewed, administered and documented per hospital policy by Silvia Love. Student documentation:I have reviewed and agree with all interventions, assessments performed and documented by Silvia Love.
--- NOTE | 2021-03-24 11:46 | NUR ---
Reassessment: Pt PO improved to 100% carb controlled meals past 3 days likely meeting estimated needs using IBW below; pending scaled wt this admit. LBM /. Will continue to monitor for additional protein needs pending further wound assessments/PO hx. Rec: 1. continue carb controlled diet per MD; chop all for ease of PO w/ hx L hemiplegia and dementia 2. routine bowel care 3. scaled wt this admit Addendum: 03/24/21 at [address] Amended: Links added.
--- NOTE | 2021-03-24 12:11 | NUR ---
Problems reprioritized. Patient report given, questions answered & plan of care reviewed with Piedad ROTH.
[2021-03-24] MEDS: normal saline 1000ml 1,000 ML IV SCH ×2 (17:06→17:35)
--- NOTE | 2021-03-24 18:24 | NUR ---
[place] documentation: I have reviewed and agree with all interventions, assessments performed and documented by GONZALEZ Bell.Problems reprioritized. Patient report given, questions answered & plan of care reviewed with GONZALEZ Salguero. Problems reprioritized. Patient report given, questions answered & plan of care reviewed with GONZALEZ Salguero.
[2021-03-24 18:26] VITALS: BP 152/78
--- NOTE | 2021-03-24 18:31 | NUR ---
Problems reprioritized. Patient report given, questions answered & plan of care reviewed with GONZALEZ Salguero.
[2021-03-24] MEDS: insulin glargine (Lantus) pen - multi-dose SQ SCH (21:00)
--- NOTE | 2021-03-24 21:34 | NUR ---
PER NICOLA ESCOBAR TO HOLD LANTUS TONIGHT FOR BLOOD SUGAR OF 80
[2021-03-24 22:00] VITALS: BP 116/51
[2021-03-25] MEDS: normal saline 1000ml 1,000 ML IV SCH (03:35)
[2021-03-25 06:00] VITALS: BP 154/80
--- NOTE | 2021-03-25 06:19 | NUR ---
Patient in room ORTHO 4010B. I have received report from GONZALEZ Salguero and had the opportunity to ask questions and assume patient care.
[2021-03-25 06:47] LABS: BASOPHILS # (AUTO) 0.1 X10'3 (0-0.2); BASOPHILS % (AUTO) 0.7 % (0-1); EOSINOPHILS # (AUTO) 0.6 X10'3 (0-0.9); EOSINOPHILS % (AUTO) 4.9 % (0-6); HEMATOCRIT 33.8 % (42.0-52.0); HEMOGLOBIN 11.1 g/dl (14.0-17.9); LYMPHOCYTES # (AUTO) 2.6 X10'3 (1.1-4.8); LYMPHOCYTES % (AUTO) 23.3 % (21-51); MEAN CORPUSCULAR HEMOGLOBIN 29.6 PG (27.0-31.0); MEAN CORPUSCULAR VOLUME 89.7 FL (78-98); MEAN PLATELET VOLUME 8.3 FL (7.4-10.4); MONOCYTES # (AUTO) 1.2 X10'3 (0-0.9); MONOCYTES % (AUTO) 10.3 % (2-12); NEUTROPHILS # (AUTO) 6.9 X10'3 (1.8-7.7); NEUTROPHILS % (AUTO) 60.8 % (42-75); PLATELET COUNT 332 X10'3 (140-440); RED BLOOD COUNT 3.77 X10'6 (4.70-6.10); RED CELL DISTRIBUTION WIDTH 13.9 % (11.5-14.5); WHITE BLOOD COUNT 11.4 X10'3 (4.5-11.0)
[2021-03-25 07:09] LABS: ALANINE AMINOTRANSFERASE 41 U/L (12-78); ALBUMIN 3.2 G/DL (3.4-5.0); ALBUMIN/GLOBULIN RATIO 0.7 (1.1-1.5); ALKALINE PHOSPHATASE 73 IU/L (46-116); ANION GAP 13 (8-16); ASPARTATE AMINO TRANSFERASE 24 U/L (10-37); BILIRUBIN,TOTAL 0.5 MG/DL (0.1-1.0); BLOOD UREA NITROGEN 24 MG/DL (7-18); BUN/CREATININE RATIO 13.2 (5.4-32.0); CALCIUM 8.5 MG/DL (8.5-10.1); CHLORIDE 107 MMOL/L (99-107); CREATININE 1.82 MG/DL (0.60-1.10); GLUCOSE 112 MG/DL (70-104); SODIUM 142 MMOL/L (135-145); TOTAL CARBON DIOXIDE 22.1 MMOL/L (24-32); TOTAL PROTEIN 7.6 G/DL (6.4-8.2); eGFR 37 ML/MIN
[2021-03-25] MEDS: K and/or MAG REPLACEMENT MC SCH (08:00)
[2021-03-25] MEDS: pantoprazole 40mg Tablet.DR PO SCH (08:11)
[2021-03-25] MEDS: losartan 50mg tablet PO SCH (08:12)
[2021-03-25] MEDS: lactobacillus rhamnosus 10,000 MMU CELLS/CAPSULE PO SCH (08:13)
[2021-03-25] MEDS: aspirin 81mg tablet.DR PO SCH (08:14)
[2021-03-25] MEDS: atorvastatin 20mg tablet PO SCH (08:14)
[2021-03-25 08:17] VITALS: BP_SYST 154
[2021-03-25] MEDS: amLODIPine 5mg tablet PO SCH (08:17)
[2021-03-25] MEDS: clopidogrel 75mg tablet PO SCH (08:18)
[2021-03-25] MEDS: OLANZapine 2.5MG tablet PO SCH (08:19)
[2021-03-25] MEDS: insulin Lispro (HumaLOG) vial - multi-dose SQ SCH (08:34)
--- NOTE | 2021-03-25 10:16 | NUR ---
D/C instructions given, questions answered. Significant other gathered and took belongings. IV d/c'd, cannula intact, no complications. D/C'd pt in stable condition to home in private vehicle. Left floor at 1010.
--- NOTE | 2021-03-25 10:37 | NUR ---
ORIENTEE documentation: I have reviewed and agree with all interventions, assessments performed and documented by GONZALEZ JUNIOR. PT DC IN STABLE CONDITIONS.
--- NOTE | 2021-03-25 10:40 | NUR ---
Student Medication Administration: For this medication-pass time frame [id number], all medications were reviewed,administered and documented per hospital policy by Aruna Melendez. Student documentation:I have reviewed and agree with all interventions, assessments performed and documented by Aruna Melendez.
[2021-03-26] MEDS ORDERED: VANCOMYCIN LEVEL IV ONE (10:30)
== END 2021-03-25 10:15 | disposition home health service (06) | DRG 300 ==
LOC: ER 09:10 → ED HOLD 12:00 → ORTHO 4S 14:00
PROVIDERS: ADMIT Family Medicine; ATTEND Family Medicine
PROC: B41F1ZZ Fluoroscopy of Right Lower Extremity Arteries using Low Osmolar Contrast (ICD-10-PCS; principal; 2021-03-19)
PROC: 4A02XM4 Measurement of Cardiac Total Activity, External Approach (ICD-10-PCS; 2021-03-21)
PROC: 3E073KZ Introduction of Other Diagnostic Substance into Coronary Artery, Percutaneous Approach (ICD-10-PCS; 2021-03-21)
DX: E11.52 Type 2 diabetes mellitus with diabetic peripheral angiopathy with gangrene (principal); M86.171 Other acute osteomyelitis, right ankle and foot; E11.69 Type 2 diabetes mellitus with other specified complication; L97.511 Non-pressure chronic ulcer of other part of right foot limited to breakdown of skin; E11.621 Type 2 diabetes mellitus with foot ulcer; E78.5 Hyperlipidemia, unspecified; F02.80 Dementia in other diseases classified elsewhere, unspecified severity, without behavioral disturbance, psychotic disturbance, mood disturbance, and anxiety; E11.40 Type 2 diabetes mellitus with diabetic neuropathy, unspecified; F12.90 Cannabis use, unspecified, uncomplicated; G30.9 Alzheimer's disease, unspecified; I49.5 Sick sinus syndrome; I10 Essential (primary) hypertension; I25.10 Atherosclerotic heart disease of native coronary artery without angina pectoris; I35.0 Nonrheumatic aortic (valve) stenosis; Z79.02 Long term (current) use of antithrombotics/antiplatelets; Z79.4 Long term (current) use of insulin; Z79.899 Other long term (current) drug therapy; Z87.891 Personal history of nicotine dependence; Z95.0 Presence of cardiac pacemaker; Z95.1 Presence of aortocoronary bypass graft
CPT/HCPCS: 36246; 36415; 73660; 73718; 74176; 75710; 76937; 78452; 80053; 80061; 80202; 81003; 82948; 83036; 83605; 83735; 85025; 85610; 85651; 85730; 86140; 87040; 87077; 87081; 87186; 93005; 93017; 93306; 93922; 93926; 96365; 97110; 97116; 97161; 97530; 99152; 99153; 99285; A6213; A9500; C1760; C1769; C1894; G0378; J0696; J1200; J1644; J1815; J2060; J2250; J2785; J3010; J3370; J7030; Q9967